=== PATIENT | male | born 1965 | race Caucasian/White ===

== ENCOUNTER 2021-03-31 13:05 | Day surgery (SDC) | payer BC ==
[2021-03-28 11:39] VITALS: BMI 29.5
[2021-03-31] MEDS ORDERED: BUPIVACAINE HCL/PF 2.5 MG/ML - 30 ML VIAL IJ ONE (13:18)
[2021-03-31] MEDS ORDERED: EPINEPHrine 1:1,000 1 MG/1 ML - 30ML VIAL (INJECTION) ONE (13:18)
[2021-03-31] MEDS ORDERED: LIDOCAINE HCL 2% JELLY (5 ML/TUBE) ONE (14:30)
[2021-03-31] MEDS ORDERED: PROPOFOL 20 ML ONE (14:31)
[2021-03-31] MEDS ORDERED: MIDAZOLAM HCL 2 MG/2 ML SINGLE DOSE VIAL ONE (14:31)
[2021-03-31] MEDS ORDERED: ceFAZolin SODIUM 1 GM VIAL ONE (14:42)
[2021-03-31] MEDS ORDERED: KETOROLAC TROMETHAMINE 30 MG/1 ML VIAL ONE (14:42)
[2021-03-31] MEDS ORDERED: DEXAMETHASONE SOD PHOSPHATE 4 MG/1 ML VIAL ONE (14:42)
[2021-03-31] MEDS ORDERED: PROMETHAZINE HCL 25 MG/1 ML VIAL IVPUSH PRN (14:50)
[2021-03-31] MEDS ORDERED: HYDROmorphone HCL/PF 1 MG/ML VIAL ONE (14:54)
[2021-03-31] MEDS ORDERED: oxyCODONE HCL 5 MG TABLET PO PRN (15:30)
[2021-03-31 16:45] VITALS: TEMP 97.1
[2021-03-31] MEDS ORDERED: ONDANSETRON 4 MG/2 ML VIAL ONE (16:48)
[2021-03-31] MEDS ORDERED: PROMETHAZINE HCL 25 MG/1 ML VIAL ONE (17:07)
[2021-03-31 17:15] VITALS: PULSE 59
[2021-03-31 18:00] VITALS: BP 126/78
== END 2021-03-31 18:04 | disposition home or self-care (01) ==
LOC: FASU 13:05
PROVIDERS: ATTEND Orthopaedic Surgery
PROC: 0SBD4ZZ Excision of Left Knee Joint, Percutaneous Endoscopic Approach (ICD-10-PCS; 2021-03-31)
PROC: 0SBD4ZZ Excision of Left Knee Joint, Percutaneous Endoscopic Approach (ICD-10-PCS; principal; 2021-03-31 14:52)
DX: S83.242A Other tear of medial meniscus, current injury, left knee, initial encounter (principal); S83.282A Other tear of lateral meniscus, current injury, left knee, initial encounter; S83.8X2A Sprain of other specified parts of left knee, initial encounter; M65.862 Other synovitis and tenosynovitis, left lower leg; X58.XXXA Exposure to other specified factors, initial encounter; Y93.9 Activity, unspecified; Y92.9 Unspecified place or not applicable
CPT/HCPCS: 88304-TC; 94760